=== PATIENT | female | born 1965 | race Caucasian/White ===

== ENCOUNTER 2017-01-01 06:18 | Inpatient (IN) | payer MEDICAID ==
[~2017-01-01] VITALS: Ht 154.9 cm; Wt 83.9 kg
[~2017-01-01 06:18] MED LIST: AMLO2.5T45 PO; ASPI-1159 PO; ATOR40TA70 PO; DOCU-150 PO; ENAL20TA PO; GLIP10TA10 PO; HYDR25TA PO; INSU3INS6 SUBCUT; JARDIANCE PO; OMEP40CA34 PO
[2017-01-01] MEDS ORDERED: ONDANSETRON HCL 4MG/2ML VIAL IV ONE (07:00)
[2017-01-01] MEDS ORDERED: NITROGLYCERIN OINT 1GM/INCH UDPKT TD ONE (07:00)
[2017-01-01 07:49] LABS: BASOPHILS % 0.8 % (0.0-2.0); EOSINOPHILS % 2.6 % (0.0-5.0); HEMATOCRIT. 40.4 % (36.0-48.0); HEMOGLOBIN. 13.7 g/dL (12.0-16.0); LYMPHOCYTES % 28.6 % (20.0-50.0); MEAN CORPUSCULAR VOLUME 88.6 fL (81.0-99.0); MEAN PLATELET VOLUME 8.6 fl (7.4-10.4); MONOCYTES % 8.9 % (2.0-8.0); NEUTROPHILS % 59.1 % (40.0-76.0); PLATELET 227 x1000/uL (130-400); RED BLOOD CELL COUNT 4.56 mill/uL (4.2-5.4)
[2017-01-01 07:55] LABS: INR 0.9; PROTHROMBIN TIME 9.9 sec (9.4-11.6)
[2017-01-01 07:58] LABS: CARBON DIOXIDE 23 mEq/L (21-32); CHLORIDE 110 mEq/L (98-107)
[2017-01-01 08:03] LABS: TROPONIN I < 0.02 ng/mL (0.00-0.04)
[2017-01-01] MEDS ORDERED: DOCUSATE SODIUM 100MG CAPSULE PO PRN (09:00)
[2017-01-01] MEDS ORDERED: ACETAMINOPHEN 325MG TABLET PO PRN (09:00)
[2017-01-01] MEDS ORDERED: ENOXAPARIN 40MG/0.4ML SYR SUBCUT SCH (09:00)
[2017-01-01 10:30] VITALS: BP 151/88
[2017-01-01 10:54] VITALS: BP 151/88
[2017-01-01] MEDS ORDERED: INSULIN DETEMIR UD 100 UNITS/ML SYR SUBCUT SCH (11:30)
[2017-01-01 12:30] VITALS: BP 139/77
[2017-01-01] MEDS: ENOXAPARIN 30MG/0.3ML SYR SUBCUT SCH ×2 (12:35→21:19)
[2017-01-01] MEDS: PANTOPRAZOLE 40MG DR TABLET PO SCH (12:36)
[2017-01-01] MEDS: ASPIRIN 325MG EC TABLET PO SCH (12:37)
[2017-01-01] MEDS: LISINOPRIL 20MG TABLET PO SCH (12:37)
[2017-01-01] MEDS: METOPROLOL TARTRATE 25MG TABLET PO SCH ×2 (12:37→21:00)
[2017-01-01] MEDS: SODIUM CHLORIDE 0.9% INJ 3ML FLUSH IVF SCH ×2 (14:00→21:19)
[2017-01-01 16:22] VITALS: BP 96/49
[2017-01-01 16:57] LABS: CREATINE KINASE MB FRACTION 1.5 ng/mL (0.5-3.6); TROPONIN I < 0.02 ng/mL (0.00-0.04)
[2017-01-01 20:00] VITALS: BP 119/71
[2017-01-01] MEDS ORDERED: ATORVASTATIN CALCIUM 40MG TABLET PO SCH (21:00)
[2017-01-01] MEDS: INSULIN DETEMIR UD 100 UNITS/ML SYR SUBCUT SCH (23:24)
[2017-01-02] VITALS: BP 102/61
[2017-01-02] MEDS ORDERED: DEXTROSE 50% WATER 50ML SYRINGE IV PRN (01:00)
[2017-01-02 01:12] LABS: CREATINE KINASE MB FRACTION 1.2 ng/mL (0.5-3.6); TROPONIN I < 0.02 ng/mL (0.00-0.04)
[2017-01-02] MEDS: BLOOD SUGAR DIAGNOSTIC STRIP TEST SCH ×2 (06:40→11:50)
[2017-01-02] MEDS: INSULIN LISPRO 100 UNITS/ML SUBCUT SCH ×2 (06:40→11:50)
[2017-01-02] MEDS: SODIUM CHLORIDE 0.9% INJ 3ML FLUSH IVF SCH (06:56)
[2017-01-02] MEDS: PANTOPRAZOLE 40MG DR TABLET PO SCH (06:56)
[2017-01-02 08:00] VITALS: BP 130/79
[2017-01-02 08:39] LABS: *AMPHETAMINES SCREEN URINE NEGATIVE (NEGATIVE); *BARBITURATES SCREEN URINE NEGATIVE (NEGATIVE); *BENZODIAZEPINES SCREEN URINE NEGATIVE (NEGATIVE); *COCAINE SCREEN URINE NEGATIVE (NEGATIVE); CANNABINOID URINE SCREEN NEGATIVE (NEGATIVE); METHADONE URINE SCREEN NEGATIVE (NEGATIVE); OPIATES URINE SCREEN NEGATIVE (NEGATIVE); PHENCYCLIDINE URINE SCREEN NEGATIVE (NEGATIVE)
[2017-01-02] MEDS: ASPIRIN 325MG EC TABLET PO SCH (09:05)
[2017-01-02] MEDS: LISINOPRIL 20MG TABLET PO SCH (09:05)
[2017-01-02] MEDS: ENOXAPARIN 30MG/0.3ML SYR SUBCUT SCH (09:05)
[2017-01-02] MEDS: METOPROLOL TARTRATE 25MG TABLET PO SCH (09:05)
[2017-01-02] MEDS: INSULIN DETEMIR UD 100 UNITS/ML SYR SUBCUT SCH (09:07)
[2017-01-02 12:00] VITALS: BP 125/78
[2017-01-02 13:28] VITALS: BP 125/78
[2017-01-03] MEDS ORDERED: ENOXAPARIN 40MG/0.4ML SYR SUBCUT SCH (09:00)
[2017-01-03] MEDS ORDERED: FAMOTIDINE 20MG TABLET PO SCH (09:00)
== END 2017-01-02 14:20 | disposition home or self-care (01) | DRG 203 ==
LOC: ER 06:18 → 5WST 08:47 → EDBEDREQTM 08:49 → EDBEDREQ 08:49 → ENRESERV 08:59
PROVIDERS: ADMIT Ophthalmology; ATTEND Ophthalmology
DX: R07.89 Other chest pain (principal); I10 Essential (primary) hypertension; E11.9 Type 2 diabetes mellitus without complications; E78.5 Hyperlipidemia, unspecified; E66.9 Obesity, unspecified; Z79.82 Long term (current) use of aspirin; Z79.899 Other long term (current) drug therapy; Z68.35 Body mass index [BMI] 35.0-35.9, adult; Z90.710 Acquired absence of both cervix and uterus
CPT/HCPCS: 36415; 71010; 80053; 80305; 82553; 82962; 83690; 83880; 84484; 85025; 85379; 85610; 93005; 96374; 99285; J1650; J1815; J2405

== ENCOUNTER 2025-01-09 11:38 | Emergency (ER) | payer MEDICAID ==
[~2025-01-09] VITALS: Ht 157.5 cm; Wt 64.0 kg
[~2025-01-09 11:38] MED LIST changes: -ASPI-1159 PO; +ASPI-1497 PO; -DOCU-150 PO; +DOCU-422 PO; +ENAL-79 PO; -ENAL20TA PO; -GLIP10TA10 PO; +GLIP10TA17 PO; +OMEP40CA20 PO; -OMEP40CA34 PO
[2025-01-09 11:51] VITALS: TEMP 36.6
[2025-01-09] MEDS: KETOROLAC 30MG/ML VIAL IM ONE (12:15)
[2025-01-09 14:39] LABS: BASOPHILS % 0.6 % (0.0-2.0); EOSINOPHILS % 1.0 % (0.0-5.0); HEMATOCRIT. 43.4 % (36.0-48.0); HEMOGLOBIN. 14.7 g/dL (12.0-16.0); LYMPHOCYTES % 28.8 % (20.0-50.0); MEAN PLATELET VOLUME 9.3 fl (7.4-10.4); MONOCYTES % 5.5 % (2.0-8.0); NEUTROPHILS % 64.1 % (40.0-76.0); PLATELET 237 x1000/uL (130-400); RED BLOOD CELL COUNT 4.83 mill/uL (4.2-5.4); RED CELL DISTRIBUTION WIDTH 13.1 % (11.6-14.6)
[2025-01-09] MEDS: KETOROLAC 30MG/ML VIAL IV ONE (14:45)
[2025-01-09 14:54] LABS: CREATININE 0.7 mg/dL (0.6-1.0); UREA NITROGEN BLOOD 10 mg/dL (9-23)
[2025-01-09 14:56] LABS: ASPARTATE AMINOTRANSFERASE 15 IU/L (<34); BILIRUBIN DIRECT 0.1 mg/dL (<=3.0); BILIRUBIN TOTAL 0.6 mg/dL (0.1-1.0); PROTEIN TOTAL 7.2 g/dL (6.0-8.3)
[2025-01-09 14:58] LABS: HCG SCREEN NEGATIVE
[2025-01-09] MEDS: SODIUM CHLORIDE 0.9% 1,000 ML IV ONE (15:47)
[2025-01-09] MEDS ORDERED: METH-653 MT (16:00)
[2025-01-09] MEDS ORDERED: IBUP-2030 MT (16:00)
[2025-01-09] MEDS ORDERED: IOHEXOL-300 100 ML BOTTLE ONE (16:15)
[2025-01-09 16:38] VITALS: BP 189/92; PULSE 72; RESP 16; O2SAT 98
== END 2025-01-09 16:48 | disposition home or self-care (01) ==
LOC: ER 11:39
DX: S20.212A Contusion of left front wall of thorax, initial encounter (principal); M25.511 Pain in right shoulder; R73.9 Hyperglycemia, unspecified; I11.9 Hypertensive heart disease without heart failure; I25.10 Atherosclerotic heart disease of native coronary artery without angina pectoris; Z79.82 Long term (current) use of aspirin; Z79.84 Long term (current) use of oral hypoglycemic drugs; Z79.899 Other long term (current) drug therapy; W01.0XXA Fall on same level from slipping, tripping and stumbling without subsequent striking against object, initial encounter; Y93.89 Activity, other specified; Y92.89 Other specified places as the place of occurrence of the external cause; Y99.8 Other external cause status
CPT/HCPCS: 99285; 74177; 96360; 80076; 80048; 82962; 84703; 85025; 86850; 86900; 86901; 36415; 71101; 73030; 96372; Q9967; J7030